=== PATIENT | male | born 1975 | race African-American/Black ===

== ENCOUNTER 2023-03-17 10:34 | Day surgery (SDC) | payer OTHER ==
[~2023-03-17] VITALS: Ht 186.7 cm; Wt 177.3 kg
[~2023-03-17 10:34] MED LIST: APIX5TAB PO; ATOR40TA28 PO; CARV25 PO; DAPA5TAB PO; FURO20 PO; HYDR-4527 PO; LOSA-382 PO; MIRT-92 PO; SEMA0.258 SQ; SODIUM CHLORIDE 0.9% 1,000 ML ONE; SPIR-37 PO
[2023-03-17] MEDS ORDERED: SODIUM CHLORIDE 0.9% 1,000 ML IV ONE (11:00)
[2023-03-17 11:51] LABS: GLUCOMETER DEV NAME(LOC) SDS.; GLUCOSE,POINT OF CARE 103 MG/DL (70-110)
[2023-03-17] MEDS ORDERED: PROPOFOL 1% 20 ML VIAL IVP ONE (12:00)
== END 2023-03-17 14:55 | disposition home or self-care (01) ==
LOC: SURGERY 10:34
PROVIDERS: ATTEND Internal Medicine Gastroenterology
DX: D64.9 Anemia, unspecified (principal); K57.30 Diverticulosis of large intestine without perforation or abscess without bleeding; K64.8 Other hemorrhoids; K29.70 Gastritis, unspecified, without bleeding; I48.91 Unspecified atrial fibrillation; I50.9 Heart failure, unspecified; I11.0 Hypertensive heart disease with heart failure; E66.9 Obesity, unspecified; G47.30 Sleep apnea, unspecified; E11.9 Type 2 diabetes mellitus without complications; Z88.0 Allergy status to penicillin; Z79.899 Other long term (current) drug therapy; Z98.890 Other specified postprocedural states; Z90.49 Acquired absence of other specified parts of digestive tract
CPT/HCPCS: 45378; 43235; 82962; 93005; C1769; J2704; J7030